=== PATIENT | female | born 1990 | race African-American/Black ===

== ENCOUNTER → 2016-12-25 | Outpatient (CLI) | payer OTHER ==
--- NOTE | 2016-12-26 06:57 | REP ---
GALLBLADDER ULTRASOUND: 12/25/2016. Clinical history: Right upper quadrant abdominal pain. No prior study. Findings: The liver is homogeneous in echotexture without focal hepatic mass, intrahepatic biliary dilatation, perihepatic ascites or hepatomegaly. Gallbladder is unremarkable. There is no sonographic Tinoco sign. There is normal wall thickness and there is no stone, sludge or pericholecystic fluid. Common duct is 3 mm without a filling defect. Pancreas was unremarkable and shows pancreatic duct with diameter of only 1 mm which is normal. Right kidney is 10 x 4.5 x 3.9 cm with no hydronephrosis. Impression: 1. Normal right upper quadrant ultrasound. No sonographic Tinoco sign. Signed by Sandoval Power MD 12/26/2016 04:42 P
== END ==
LOC: M RAD 07:50
PROVIDERS: ATTEND Physician Assistant Medical
DX: R10.11 Right upper quadrant pain (principal)

== ENCOUNTER → 2016-12-27 | Outpatient (CLI) | payer OTHER ==
[2016-12-29 09:30] LABS: ESTRADIOL 64.1 PG/ML
[2016-12-29 09:31] LABS: FOLLICLE STIMULATING HORMONE 8.1 mIU/mL
== END ==
LOC: M LAB 10:38
PROVIDERS: ATTEND Obstetrics & Gynecology
DX: N97.9 Female infertility, unspecified (principal)

== ENCOUNTER 2017-01-07 14:42 | Emergency (ER) | payer OTHER ==
[~2017-01-07] VITALS: Ht 160 cm; Wt 86.2 kg
[2017-01-07] MEDS ORDERED: METF500T PO (14:59)
[2017-01-07] MEDS ORDERED: LISI20TA PO (14:59)
[2017-01-07] MEDS ORDERED: MORPHINE 4 MG/ML 1ML SYRINGE IV PRN (16:00)
[2017-01-07] MEDS ORDERED: NS 1,000 ML IV ONE (16:00)
[2017-01-07 16:24] LABS: BASO % 0.6 % (0.0-1.0); EOS # 0.1 K/mm3 (0.0-0.50); EOS % 1.7 % (0.0-3.0); LARGE UNSTAINED CELL # 0.1 K/mm3 (0.0-0.4); LARGE UNSTAINED CELL % 2.1 % (0.0-4.0); LYMPH # 2.8 K/mm3 (1.5-6.5); LYMPH % 40.2 % (24.0-44.0); MEAN CORPUSCULAR HEMOGLOBIN 28.9 pg (27.0-33.0); MEAN CORPUSCULAR HGB CONC 33.4 g/dl (32.0-36.5); MEAN CORPUSCULAR VOLUME 86.7 fl (80.0-96.0); MONO # 0.4 K/mm3 (0.0-0.8); MONO % 5.9 % (0.0-5.0); NEUTROPHILS # 3.3 K/mm3 (1.8-7.7); NEUTROPHILS % 49.6 % (36.0-66.0); PLATELET COUNT, AUTOMATED 283 k/mm3 (150-450); RED CELL DISTRIBUTION WIDTH 12.8 % (11.5-14.5); WHITE BLOOD COUNT 6.8 K/mm3 (4.0-10.0)
[2017-01-07 17:03] LABS: ALBUMIN 3.8 GM/DL (3.2-5.2); ALBUMIN/GLOBULIN RATIO 0.88 (1.00-1.93); ALKALINE PHOSPHATASE 66 U/L (45-117); ALT/SGPT 22 U/L (12-78); ANION GAP 7 MEQ/L (8-16); AST/SGOT 16 U/L (15-37); BILIRUBIN,DIRECT < 0.1 MG/DL (0.0-0.2); BILIRUBIN,TOTAL 0.2 MG/DL (0.2-1.0); BLOOD UREA NITROGEN 11 MG/DL (7-18); CARBON DIOXIDE LEVEL 27 MEQ/L (21-32); CHLORIDE LEVEL 104 MEQ/L (98-107); CREATININE FOR GFR 0.98 MG/DL (0.55-1.02); GLOMERULAR FILTRATION RATE > 60.0 (>60); GLUCOSE, FASTING 85 MG/DL (70-105); POTASSIUM SERUM 4.4 MEQ/L (3.5-5.1); SODIUM LEVEL 138 MEQ/L (136-145); TOTAL PROTEIN 8.1 GM/DL (6.4-8.2)
--- NOTE | 2017-01-07 17:39 | REP ---
Clinical: Right adnexal pain . Technique: Transabdominal pelvic ultrasound followed by transvaginal examination for better evaluation of the endometrium and adnexa with color Doppler evaluation of the ovaries. Findings: Bladder is unremarkable and measures 7.3 x 4.2 x 4.1 cm . Heterogeneous anteverted uterus measures 7.8 x 3.4 x 4.9 cm . The endometrial complex measures 7.3 mm thickness. No discrete uterine or endometrial abnormalities are appreciated. Bilateral ovaries are normal in appearance and vascularity without evidence for torsion. Right ovary measures 4.1 x 3.1 x 4.1 cm ; R I = 0.52 . Left ovary measures 3.6 x 2.6 x 2.7 cm ; R I = 0.60 . No pelvic fluid or adnexal mass lesion . Impression: 1. Normal pelvic ultrasound. No evidence for torsion. No free fluid or adnexal mass lesion. Signed by Yeison Cruz MD 01/07/2017 05:31 P
[2017-01-07 18:16] VITALS: BP 134/85
--- NOTE | 2017-01-07 18:43 | REP ---
Clinical: Abdominal pain and constipation. Technique: Single supine view of the abdomen and pelvis. Findings: Moderate fecal stasis is suggested raising the possibility of constipation. No bowel obstruction. No organomegaly. Skeletal structures intact. No abnormal calcifications. Impression: Fecal stasis and constipation cannot be excluded. Otherwise nonspecific abdominal radiograph. Signed by Yeison Cruz MD 01/07/2017 06:35 P
[2017-01-07] MEDS ORDERED: MIRA3350 PO (18:50)
[2017-01-07] MEDS ORDERED: MAGNESIUM CITRATE 300 ML BTL PO ONE (19:00)
== END 2017-01-07 19:03 | disposition home or self-care (01) ==
LOC: M ED 15:52
DX: K59.00 Constipation, unspecified (principal); Z79.899 Other long term (current) drug therapy

== ENCOUNTER 2017-03-20 12:52 | Emergency (ER) | payer OTHER ==
[~2017-03-20] VITALS: Ht 162.6 cm; Wt 86.4 kg
[~2017-03-20 12:52] MED LIST: LISI20TA PO; METF500T13 PO; MIRA3350 PO
[2017-03-20] MEDS ORDERED: LABE10TAB PO (13:16)
[2017-03-20] MEDS ORDERED: NALT50TA4 PO (13:16)
[2017-03-20] MEDS ORDERED: KETOROLAC 30 MG/ML VIAL (J1885) IV ONE (14:00)
[2017-03-20] MEDS ORDERED: ONDANSETRON 4MG/2ML VIAL (J2405) IV ONE (14:00)
[2017-03-20] MEDS ORDERED: ONDANSETRON 4 MG ORAL DISINTEGRATING TAB (S0181) PO ONE (14:30)
[2017-03-20] MEDS ORDERED: KETOROLAC 60 MG/2 ML VIAL (J1885) IM ONE (14:30)
[2017-03-20 14:33] LABS: BASO % 0.4 % (0.0-1.0); EOS # 0.1 K/mm3 (0.0-0.50); EOS % 0.8 % (0.0-3.0); LARGE UNSTAINED CELL # 0.1 K/mm3 (0.0-0.4); LYMPH # 1.6 K/mm3 (1.5-6.5); LYMPH % 16.8 % (24.0-44.0); MEAN CORPUSCULAR HEMOGLOBIN 28.5 pg (27.0-33.0); MEAN CORPUSCULAR HGB CONC 32.7 g/dl (32.0-36.5); MEAN CORPUSCULAR VOLUME 87.2 fl (80.0-96.0); MONO # 0.4 K/mm3 (0.0-0.8); MONO % 4.5 % (0.0-5.0); NEUTROPHILS # 6.7 K/mm3 (1.8-7.7); NEUTROPHILS % 76.5 % (36.0-66.0); PLATELET COUNT, AUTOMATED 265 k/mm3 (150-450); WHITE BLOOD COUNT 8.7 K/mm3 (4.0-10.0)
[2017-03-20 15:00] LABS: ALBUMIN 4.1 GM/DL (3.2-5.2); ALBUMIN/GLOBULIN RATIO 1.08 (1.00-1.93); ALKALINE PHOSPHATASE 66 U/L (45-117); ALT/SGPT 37 U/L (12-78); AMYLASE 77 U/L (25-115); ANION GAP 9 MEQ/L (8-16); AST/SGOT 25 U/L (15-37); BILIRUBIN,DIRECT < 0.1 MG/DL (0.0-0.2); BILIRUBIN,TOTAL 0.4 MG/DL (0.2-1.0); BLOOD UREA NITROGEN 11 MG/DL (7-18); CALCIUM LEVEL 9.5 MG/DL (8.5-10.1); CARBON DIOXIDE LEVEL 27 MEQ/L (21-32); CHLORIDE LEVEL 102 MEQ/L (98-107); CREATININE FOR GFR 0.82 MG/DL (0.55-1.02); GLOMERULAR FILTRATION RATE > 60.0 (>60); GLUCOSE, FASTING 92 MG/DL (70-105); SODIUM LEVEL 138 MEQ/L (136-145); TOTAL PROTEIN 7.9 GM/DL (6.4-8.2)
[2017-03-20 15:36] VITALS: BP 145/79
[2017-03-20] MEDS ORDERED: ZOFR4TAB3 PO (15:36)
--- NOTE | 2017-03-20 16:44 | REP ---
RIGHT UPPER QUADRANT ULTRASOUND: Real-time sonographic evaluation of the right upper quadrant performed. The gallbladder demonstrates no evidence of intraluminal sludge or calculi, wall thickening or pericholecystic fluid. There is no intrahepatic or extrahepatic biliary dilatation, the common bile duct measuring 2 mm in diameter. The liver and pancreas demonstrate homogeneous echotexture with no gross mass. The right kidney demonstrates no hydronephrosis or nephrolithiasis with normal size and 9.8 cm in length. IMPRESSION: Negative right upper quadrant ultrasound. Signed by Rios Villasenor MD 03/20/2017 04:47 P
== END 2017-03-20 15:44 | disposition home or self-care (01) ==
LOC: M ED 12:52
DX: R10.10 Upper abdominal pain, unspecified (principal); R11.2 Nausea with vomiting, unspecified; I10 Essential (primary) hypertension; E28.2 Polycystic ovarian syndrome; Z79.899 Other long term (current) drug therapy; Z79.84 Long term (current) use of oral hypoglycemic drugs
CPT/HCPCS: 76705; 80048; 80076; 81001; 81025; 82150; 83690; 85025; 86140; 96372; 99283; J1885

== ENCOUNTER → 2017-04-21 | Outpatient (CLI) | payer OTHER ==
[~2017-04-21] MED LIST changes: +LABE10TAB PO; +NALT50TA4 PO; +ZOFR4TAB3 PO
--- NOTE | 2017-04-21 20:20 | REP ---
Clinical: Constipation and abdominal pain. Technique: Upright view of the chest with supine and upright views of the abdomen and pelvis. Findings: Frontal upright view of the chest demonstrates no acute cardiopulmonary process or free air below the diaphragm to suspect pneumoperitoneum. Supine and upright views of the abdomen and pelvis demonstrate nonspecific bowel gas pattern without obstruction or perforation. No organomegaly. No abnormal calcifications. Skeletal structures normal for age. Impression: Nonspecific bowel gas pattern. Signed by Yeison Cruz MD 04/21/2017 08:11 P
== END ==
LOC: M WUC 19:15
PROVIDERS: ATTEND Physician Assistant
DX: R10.84 Generalized abdominal pain (principal); K59.00 Constipation, unspecified

== ENCOUNTER → 2017-04-30 | Outpatient (CLI) | payer OTHER ==
[~2017-04-30] MED LIST changes: +GASTROGRAFIN SOLUTION 30ML (Q9963) As Ordered ONE; +ISOVUE-370 76% 100ML VIAL (Q9967) As Ordered ONE
--- NOTE | 2017-04-30 18:51 | REP ---
Clinical: Abdominal pain and constipation. Technique: Axial contrast enhanced images from the lung bases to the pubic symphysis using oral and 100 ml Isovue 370 intravenous contrast material with coronal and sagittal re-formations. Findings: Lung bases are clear. Visualized heart and pericardium normal. Liver includes 1 cm cyst and is otherwise normal. Spleen, pancreas, gallbladder, bilateral adrenal glands and kidneys are normal. Multiple splenules are identified in the left upper quadrant measuring up to approximately 12 mm. The enteric system is without obstruction or acute inflammatory process and a normal terminal ileum and appendix are identified in the right lower quadrant. Pelvis demonstrates normal bladder and age-appropriate uterus/adnexa cystic changes to the bilateral ovaries likely physiologic. No pelvic fluid. No free air. No adenopathy. Vasculature is normal. Skeletal structures are intact. Impression: 1. Incidental 1 cm hepatic cyst in the medial segment left lobe. 2. No acute abdominopelvic pathology appreciated. 3. Few splenules in the left upper quadrant - normal variant. Signed by Yeison Cruz MD 04/30/2017 06:43 P
== END ==
LOC: M RAD 15:32
PROVIDERS: ATTEND Allergy & Immunology
DX: K59.00 Constipation, unspecified (principal)

== ENCOUNTER → 2017-07-15 | Outpatient (CLI) | payer OTHER ==
[~2017-07-15] MED LIST changes: +ALBU83IN INH; -GASTROGRAFIN SOLUTION 30ML (Q9963) As Ordered ONE; -ISOVUE-370 76% 100ML VIAL (Q9967) As Ordered ONE; +SENE8.6T3 PO
[2017-07-15 17:55] LABS: MEAN CORPUSCULAR HEMOGLOBIN 27.5 pg (27.0-33.0); MEAN CORPUSCULAR HGB CONC 31.9 g/dl (32.0-36.5); MEAN CORPUSCULAR VOLUME 86.2 fl (80.0-96.0); PLATELET COUNT, AUTOMATED 270 10^3/uL (150-450); RED CELL DISTRIBUTION WIDTH 12.6 % (11.5-14.5); WHITE BLOOD COUNT 6.7 10^3/uL (4.0-10.0)
[2017-07-15 18:50] LABS: ALBUMIN 3.6 GM/DL (3.2-5.2); ALBUMIN/GLOBULIN RATIO 1.09 (1.00-1.93); ALKALINE PHOSPHATASE 66 U/L (45-117); ALT/SGPT 21 U/L (12-78); ANION GAP 8 MEQ/L (8-16); AST/SGOT 14 U/L (7-37); BILIRUBIN,TOTAL 0.4 MG/DL (0.2-1.0); BLOOD UREA NITROGEN 9 MG/DL (7-18); CALCIUM LEVEL 8.9 MG/DL (8.5-10.1); CARBON DIOXIDE LEVEL 28 MEQ/L (21-32); CHLORIDE LEVEL 103 MEQ/L (98-107); CREATININE FOR GFR 0.74 MG/DL (0.55-1.02); GLOMERULAR FILTRATION RATE > 60.0 (>60); GLUCOSE, FASTING 111 MG/DL (70-105); POTASSIUM SERUM 3.7 MEQ/L (3.5-5.1); SODIUM LEVEL 139 MEQ/L (136-145); T UPTAKE 32 % (30-39); THYROXINE (T4) 8.2 UG/DL (4.5-12.0); TOTAL PROTEIN 6.9 GM/DL (6.4-8.2)
== END ==
LOC: M LAB 16:45
PROVIDERS: ATTEND Internal Medicine Gastroenterology
DX: K58.1 Irritable bowel syndrome with constipation (principal)

== ENCOUNTER → 2017-08-28 | Outpatient (CLI) | payer OTHER ==
[2017-08-28 08:35] LABS: HEMATOCRIT 37.8 % (36.0-47.0); HEMOGLOBIN 12.4 g/dl (12.0-16.0); MEAN CORPUSCULAR HEMOGLOBIN 27.3 pg (27.0-33.0); MEAN CORPUSCULAR HGB CONC 32.8 g/dl (32.0-36.5); MEAN CORPUSCULAR VOLUME 83.3 fl (80.0-96.0); PLATELET COUNT, AUTOMATED 275 10^3/uL (150-450); RED BLOOD COUNT 4.54 10^6/uL (4.00-5.40); RED CELL DISTRIBUTION WIDTH 13.5 % (11.5-14.5)
[2017-08-28 09:12] LABS: HCG, SERUM QUANTITATIVE 1233 MIU/ML
[2017-08-28 09:14] LABS: PROGESTERONE 38.6 NG/ML
== END ==
LOC: M LAB 07:59
DX: Z31.41 Encounter for fertility testing (principal)

== ENCOUNTER 2017-09-08 03:27 | Emergency (ER) | payer OTHER ==
[2017-09-08 07:09] LABS: HCG, SERUM QUANTITATIVE 27071 MIU/ML
== END 2017-09-08 07:56 | disposition home or self-care (01) ==
LOC: M ED 03:27
DX: O20.0 Threatened abortion (principal); O99.281 Endocrine, nutritional and metabolic diseases complicating pregnancy, first trimester; E28.2 Polycystic ovarian syndrome; Z3A.01 Less than 8 weeks gestation of pregnancy; O09.291 Supervision of pregnancy with other poor reproductive or obstetric history, first trimester; Z79.84 Long term (current) use of oral hypoglycemic drugs; Z79.899 Other long term (current) drug therapy; Z79.890 Hormone replacement therapy; Z79.52 Long term (current) use of systemic steroids
CPT/HCPCS: 76801